=== PATIENT | male | born 1990 | race Hispanic/Latino ===

== ENCOUNTER 2017-06-07 12:36 | Emergency (ER) | payer SELFPAY ==
[~2017-06-07] VITALS: Ht 165.1 cm; Wt 60.0 kg
[2017-06-07 13:08] LABS: URINE BILIRUBIN - DIPSTICK NEGATIVE (NEGATIVE); URINE BLOOD DIPSTICK LARGE (NEGATIVE); URINE COLOR YELLOW; URINE GLUCOSE - DIPSTICK NEGATIVE (NEGATIVE); URINE KETONE NEGATIVE (NEGATIVE); URINE LEUK ESTERASE NEGATIVE (NEGATIVE); URINE NITRITE - DIPSTICK NEGATIVE (Negative); URINE PH 5.5 (4.5-8.0); URINE PROTEIN - DIPSTICK 100 mg/dL (NEG-TRACE); URINE SPECIFIC GRAVITY >=1.030; URINE UROBILINOGEN - DIPSTICK 0.2 E.U./dL (0.2)
[2017-06-07 13:13] LABS: URINE CLARITY HAZY
[2017-06-07 13:16] LABS: HEMATOCRIT 27.2 % (39.0-50.0); HEMOGLOBIN 9.4 g/dl (14.0-18.0); IMMATURE GRANULOCYTES 0.4 % (0.0-1.0); MEAN CELL VOLUME 83.7 fL CALC (80.0-100.0); MEAN CORPUSCULAR HGB 28.9 pG CALC (26.0-32.0); MEAN CORPUSCULAR HGB CONC 34.6 g/L CALC (32.0-36.0); NEUT# 4.35 thou/uL (1.82-7.42); RED BLOOD COUNT 3.25 mill/uL (4.70-6.10); RED CELL DISTRI WIDTH 13.8 % (11.5-15.5)
[2017-06-07 13:27] LABS: URINE AMORPH SEDIMENT FEW hpf (NONE-FER); URINE FINE GRAN CAST FEW lpf; URINE MUCUS FEW hpf (NONE-FEW); URINE SQUAMOUS EPITHELIAL CELL FEW EPI/hpf (0-FEW); URINE WBC 0-2 WBC/hpf (0-5)
[2017-06-07 13:34] LABS: ALKALINE PHOSPHATASE 84 u/l (38-126); AMYLASE 75 u/l (30-110); ANION GAP 18 (6-22 (CALC)); BILIRUBIN, TOTAL 0.8 mg/dL (0.0-1.4); BUN 40 mg/dL (9-20); BUN/CREATININE RATIO 35 (12-20 (CALC)); CALCIUM 8.8 mg/dL (8.4-10.2); CARBON DIOXIDE 23 mmol/l (22-30); CHLORIDE 97 mmol/l (95-108); CREATININE 1.1 mg/dL (0.7-1.3); GFR > 60 ML/MIN (>=60 (CALC)); GFR FOR AFR.AMER. > 60 ML/MIN (>=60 (CALC)); GLUCOSE 113 mg/dL (75-110); LIPASE 94 u/l (23-300); POTASSIUM 3.5 mmol/l (3.5-5.1); SGOT/AST 72 u/l (17-59); SGPT/ALT 44 u/l (21-72); SODIUM 134 mmol/l (137-146)
[2017-06-07] MEDS ORDERED: NEXIUM40 M1 PO (14:57)
[2017-06-07] MEDS ORDERED: ZOFRAN ODT4 MG PO (14:57)
[2017-06-07 15:22] VITALS: BP 112/62
== END 2017-06-07 15:37 | disposition home or self-care (01) | DRG 392 ==
LOC: ED 12:36 → EDBD 13:06 → ED 15:37
PROVIDERS: Emergency Medicine
DX: R10.9 Unspecified abdominal pain (principal); R50.9 Fever, unspecified; R11.2 Nausea with vomiting, unspecified; R19.7 Diarrhea, unspecified; R00.0 Tachycardia, unspecified
CPT/HCPCS: S0164

== ENCOUNTER 2017-06-17 17:27 | Inpatient (IN) | payer SELFPAY ==
[~2017-06-17] VITALS: Ht 165.1 cm; Wt 47.0 kg
[~2017-06-17 17:27] MED LIST: NEXIUM40 M1 PO; ZOFRAN ODT4 MG PO
--- NOTE | 2017-06-17 17:47 | NUR ---
PT TO ROOM FO RTREATMENT IN STABLE CONDIITON
--- NOTE | 2017-06-17 19:25 | NUR ---
IV ABT. GIVEN PER MD ORDER.
--- NOTE | 2017-06-17 19:25 | NUR ---
IV PAIN MED, IVF, IV PROTONIX AND IV ANTIEMETIC GIVEN PER MD ORDERED.
[2017-06-17 19:33] LABS: HEMATOCRIT 27.4 % (39.0-50.0); HEMOGLOBIN 9.3 g/dl (14.0-18.0); IMMATURE GRANULOCYTES 0.5 % (0.0-1.0); MEAN CELL VOLUME 84.3 fL CALC (80.0-100.0); MEAN CORPUSCULAR HGB 28.6 pG CALC (26.0-32.0); MEAN CORPUSCULAR HGB CONC 33.9 g/L CALC (32.0-36.0); NEUT# 3.26 thou/uL (1.82-7.42); RED BLOOD COUNT 3.25 mill/uL (4.70-6.10); RED CELL DISTRI WIDTH 13.7 % (11.5-15.5)
[2017-06-17 19:46] LABS: ALBUMIN 3.3 g/dL (3.2-5.0); ALKALINE PHOSPHATASE 109 u/l (38-126); AMYLASE 327 u/l (30-110); ANION GAP 12 (6-22 (CALC)); BILIRUBIN, TOTAL 0.7 mg/dL (0.0-1.4); BUN 19 mg/dL (9-20); BUN/CREATININE RATIO 25 (12-20 (CALC)); CALCIUM 8.5 mg/dL (8.4-10.2); CARBON DIOXIDE 26 mmol/l (22-30); CHLORIDE 98 mmol/l (95-108); CREATININE 0.8 mg/dL (0.7-1.3); GFR > 60 ML/MIN (>=60 (CALC)); GFR FOR AFR.AMER. > 60 ML/MIN (>=60 (CALC)); GLUCOSE 88 mg/dL (75-110); LIPASE 1406 u/l (23-300); POTASSIUM 4.9 mmol/l (3.5-5.1); SGOT/AST 108 u/l (17-59); SGPT/ALT 47 u/l (21-72); SODIUM 131 mmol/l (137-146); TOTAL PROTEIN 8.5 g/dL (6.3-8.2)
[2017-06-17] MEDS ORDERED: EQ OMEPRAZOLE20 MG PO (19:46)
[2017-06-17] MEDS ORDERED: NAUZENE PO (19:47)
--- NOTE | 2017-06-17 20:11 | NUR ---
PT. STATES HIS ABD. PAIN IS COMPLETLY RESOLVED OF THIS TIME.
[2017-06-17 20:26] LABS: URINE BILIRUBIN - DIPSTICK NEGATIVE (NEGATIVE); URINE BLOOD DIPSTICK SMALL (NEGATIVE); URINE CLARITY SLIGHT CLOUDY; URINE COLOR YELLOW; URINE GLUCOSE - DIPSTICK NEGATIVE (NEGATIVE); URINE KETONE NEGATIVE (NEGATIVE); URINE LEUK ESTERASE NEGATIVE (NEGATIVE); URINE NITRITE - DIPSTICK NEGATIVE (Negative); URINE PROTEIN - DIPSTICK 100 mg/dL (NEG-TRACE)
--- NOTE | 2017-06-17 20:30 | NUR ---
PT. DRINKING PO CONTRAST FOR CT-SCAN, NO C/O NAUSEA OR VOMITING OFFERED.
[2017-06-17 20:45] LABS: URINE BACTERIA FEW hpf; URINE COARSE GRANULAR CAST MODERATE lpf; URINE FINE GRAN CAST FEW lpf; URINE SQUAMOUS EPITHELIAL CELL FEW EPI/hpf (0-FEW)
--- NOTE | 2017-06-17 21:30 | NUR ---
RESTING ON STRETCHER, NO C/O ABD. PAIN OR DISCOMFORT OFFERED, NO S/S OF NAUSEA OR VOMITING OFFERED.
--- NOTE | 2017-06-17 22:30 | NUR ---
AMBULATING TO BR GAIT SLOW AND STEADY, NO C/O ABD. PAIN OR DISCOMFORT OFFERED.
--- NOTE | 2017-06-17 23:30 | NUR ---
FAMILY AT SIDE NO C/O. V/S STABLE.
--- NOTE | 2017-06-18 00:30 | NUR ---
PT. STATES HE HAS NO C/O ABD. PAIN OFFERED.
--- NOTE | 2017-06-18 01:08 | NUR ---
MD IN ROOM TO DISCUSS CLINICAL FINDINGS.
--- NOTE | 2017-06-18 02:08 | NUR ---
abd. soft with +/o pain or discomfort offered.
--- NOTE | 2017-06-18 02:36 | NUR ---
iv levaquin given as per md order.
--- NOTE | 2017-06-18 03:26 | NUR ---
PT. RESTING ON STRETCHER, TAKING SIPS OF H20. NO C/O.
--- NOTE | 2017-06-18 04:25 | NUR ---
PT. TEMP. 101.0 MD AWARE.
--- NOTE | 2017-06-18 04:29 | NUR ---
PO MOTRIN GIVEN PER MD ORDER.
--- NOTE | 2017-06-18 04:46 | NUR ---
Admission Note Report Given to: lucia burns Transported by: Wheelchair x Stretcher Transported with: x Nurse Transporter x Patent IV O2 Construction Services Technician
--- NOTE | 2017-06-18 04:56 | NUR ---
PT. TO [facility] VIA STRETCHER.
--- NOTE | 2017-06-18 05:05 | NUR ---
PT. ARRIVED TO THE FLOOR VIA STRETCHER ACCOMPANIED BY ER STAFF. PT. DENIES NEEDS/PAIN AT THIS TIME. ADMISSION ASSESSEMENT COMPLETED. JUSTIN LAZARO IN AT BEDSIDE FOR ENRICHMENT SPECIALIST. UPDATED PT. ON POC, CALL LIGHT, AND ROOM; VERBALIZES UNDERSTANDING. WILL CALL MD FOR FURTHER ORDERS SHORTLY.
[2017-06-18 05:45] VITALS: BP 91/52
--- NOTE | 2017-06-18 06:06 | NUR ---
DR. MOTT NOTIFIED OF PT'S VS; HR 130'S, B/P 91/52, AND TEMP OF 102.6. ALSO NOTIFIED OF PT. REPORTING HAVING DIARRHEA FOR 8 DAYS. NEW ORDERS RECEIVED AND TO BE CARRIED OUT. MD AWARE OF NEEDING TO WAIT UNTIL PHARMACY ARRIVES FOR PPD INJECTION.
--- NOTE | 2017-06-18 06:35 | NUR ---
PT. MEDICATED WITH ORDERED TYLENOL AND BOLUS OF NS STARTED PER ORDER.
[2017-06-18 07:49] VITALS: BP 105/58
[2017-06-18 08:44] LABS: C. DIFFICILE TOXIN A&B NEGATIVE (NEGATIVE)
--- NOTE | 2017-06-18 08:45 | NUR ---
PT RESTING WITH EYES CLOSED; NO S/SX OF DISTRESS NOTED; IV INFUSING WITHOUT DIFFICULTY; CALL STRONG WITHIN REACH; WILL CONTINUE TO MONITOR.
[2017-06-18 09:16] LABS: HEMATOCRIT 21.5 % (39.0-50.0); HEMOGLOBIN 7.2 g/dl (14.0-18.0); IMMATURE GRANULOCYTES 0.6 % (0.0-1.0); MEAN CELL VOLUME 85.7 fL CALC (80.0-100.0); MEAN CORPUSCULAR HGB 28.7 pG CALC (26.0-32.0); MEAN CORPUSCULAR HGB CONC 33.5 g/L CALC (32.0-36.0); NEUT# 3.36 thou/uL (1.82-7.42); RED BLOOD COUNT 2.51 mill/uL (4.70-6.10); RED CELL DISTRI WIDTH 14.1 % (11.5-15.5)
[2017-06-18 09:36] LABS: ALBUMIN 2.2 g/dL (3.2-5.0); ALKALINE PHOSPHATASE 74 u/l (38-126); ANION GAP 11 (6-22 (CALC)); BILIRUBIN, TOTAL 0.5 mg/dL (0.0-1.4); BUN 15 mg/dL (9-20); BUN/CREATININE RATIO 22 (12-20 (CALC)); CALCIUM 6.9 mg/dL (8.4-10.2); CARBON DIOXIDE 22 mmol/l (22-30); CREATININE 0.7 mg/dL (0.7-1.3); GFR > 60 ML/MIN (>=60 (CALC)); GFR FOR AFR.AMER. > 60 ML/MIN (>=60 (CALC)); GLUCOSE 85 mg/dL (75-110); POTASSIUM 3.5 mmol/l (3.5-5.1); SGOT/AST 72 u/l (17-59); SGPT/ALT 39 u/l (21-72); SODIUM 137 mmol/l (137-146); TOTAL PROTEIN 6.2 g/dL (6.3-8.2)
[2017-06-18 10:07] LABS: CHLORIDE 108 mmol/l (95-108)
--- NOTE | 2017-06-18 10:38 | NUR ---
Vancomycin Consult Age: 26 years Weight: 47 kg Height: 165.1 cm Gender: Male SCR: 0.7 mg/dl Dosing weight: 47 kg IBW: 61.50 kg CRCL (ml/min): 106.3 Fei (hr-1): 0.093 Half-life (hrs): 7.45 Vd (liters): 32.90 (factor: 0.7 L/kg) Vancomycin 1000 mg Q12H to produce a predicted peak of 43 mcg/ml and a predicted trough of 16 mcg/ml based on (Population-based pharmacokinetic analysis).
[2017-06-18 11:15] VITALS: BP 95/55
--- NOTE | 2017-06-18 14:00 | NUR ---
DR. MATA IN TO SEE PT; PLAN OF CARE DISCUSSED
[2017-06-18 16:00] VITALS: BP 108/65
--- NOTE | 2017-06-18 16:50 | NUR ---
FAMILY IN TO SEE PT; NO COMPLAINTS VOICED; CALL STRONG WITHIN REACH; WILL CONTINUE TO MONITOR.
--- NOTE | 2017-06-18 18:59 | NUR ---
DR. MOTT NOTIFIED OF TELE MONITORING 140-160s SUSTAINING AND TEMP 95.6; ORDERS RECEIVED TO GIVE WARM NS BOLUS; HOUSE SUP NOTIFIED; CALL STRONG WITHIN REACH; WILL CONTINUE TO MONITOR.
[2017-06-18 19:39] VITALS: BP 137/64
[2017-06-18 20:29] VITALS: BP 103/46
--- NOTE | 2017-06-18 20:30 | NUR ---
BEDSIDE REPORT RECEIVED FROM DARRYN ALFARO @ [id number]. ASSESSMENT COMPLETED AT THIS TIME. TEMEPERATURE INCREASED TO 103.6. BEAR HUGGER REMOVED AND BLANKETS TAKEN OFF. WARM FLUIDS CONTINUE AT THIS TIME. FAMILY AT BEDSIDE. WILL CONTINUE TO MONITOR TEMP.
--- NOTE | 2017-06-19 | NUR ---
PT AWAKENS SPONTANEOUSLY; ALERT AND ORIENTED. C/O MILD ABDOMINAL PAIN. RESPIRATIONS EVEN AND UNLABORED. VOIDING CLEAR YELLOW URINE INTO URINAL AT BEDSIDE. IV FLUIDS INFUSING WITHOUT DIFFICULTY; IV SITE APPEARS HEALTHY. TELE IN PLACE. PENILE LESIONS NOTED UNDER [place]; NOT OPEN OR DRAINING. DRY COUGH CONTINUES. SAFETY MEASURES IN PLACE. CALL LIGHT WITHIN REACH.
[2017-06-19 04:27] VITALS: BP 127/76
--- NOTE | 2017-06-19 05:29 | NUR ---
PTS TEMPERATURE DOWN FROM BEGINNING OF SHIFT. PT STATES HE HAD 7 BOWEL MOVEMENTS OF DIARRHEA THROUGHOUT THE SHIFT IN LARGE AMOUNTS. ABT GIVEN WITH NO ADVERSE EFFECTS NOTED. REMAINS ON AIRBORNE PRECAUTIONS UNTIL TB IS RULED OUT. QUESTIONS ARE ANSWERED TO SATISFACTION WITH [place]ET[place]ESE SPEAKING PRICING MANAGER. SAFETY MEASURES IN PLACE. CALL LIGHT WITHIN REACH.
[2017-06-19 06:02] LABS: HEMATOCRIT 24.9 % (39.0-50.0); HEMOGLOBIN 8.2 g/dl (14.0-18.0); IMMATURE GRANULOCYTES 1.1 % (0.0-1.0); MEAN CELL VOLUME 87.1 fL CALC (80.0-100.0); MEAN CORPUSCULAR HGB 28.7 pG CALC (26.0-32.0); MEAN CORPUSCULAR HGB CONC 32.9 g/L CALC (32.0-36.0); NEUT# 2.57 thou/uL (1.82-7.42); RED BLOOD COUNT 2.86 mill/uL (4.70-6.10); RED CELL DISTRI WIDTH 14.4 % (11.5-15.5)
[2017-06-19 06:04] LABS: ANION GAP 12 (6-22 (CALC)); BUN 13 mg/dL (9-20); BUN/CREATININE RATIO 18 (12-20 (CALC)); CALCIUM 7.6 mg/dL (8.4-10.2); CARBON DIOXIDE 21 mmol/l (22-30); CHLORIDE 111 mmol/l (95-108); CREATININE 0.7 mg/dL (0.7-1.3); GFR > 60 ML/MIN (>=60 (CALC)); GFR FOR AFR.AMER. > 60 ML/MIN (>=60 (CALC)); GLUCOSE 77 mg/dL (75-110); MAGNESIUM 1.7 mg/dL (1.6-2.3); POTASSIUM 4.1 mmol/l (3.5-5.1); SODIUM 139 mmol/l (137-146)
--- NOTE | 2017-06-19 06:08 | NUR ---
PT'S HEART RATE TEMPORARILY ELEVATED TO THE 180'S. UPON ASSESSMENT, PT HAD A LARGE EMESIS OF CLEAR THIN LIQUID CONSISTENCY WITH SMALL AMOUNT OF BLOOD. AFTER EMESIS, HR DECREASED TO THE 150'S, WHICH HAS BEEN TYPICAL OF PT. PT STATES THAT HE NO LONGER FEELS NAUSEA, ONLY DISCOMFORT IN MID ABDOMEN. TEMPERATURE AT THIS TIME WAS 101.3. TYLENEL GIVEN WITH OTHER MORNING MEDICATIONS. WILL REASSESS.
[2017-06-19 08:30] VITALS: BP 98/52
[2017-06-19 11:45] VITALS: BP 99/53
[2017-06-19 16:06] VITALS: BP 107/69
--- NOTE | 2017-06-19 16:50 | NUR ---
SPUTUM OBTAINED AND SENT TO LAB
[2017-06-19 19:40] VITALS: BP 111/54
--- NOTE | 2017-06-19 20:27 | NUR ---
PT. SITTING UP ON THE SIDE OF THE BED; NO DISTRESS NOTED. RESP EVEN AND UNLABORED. ASSESSMENT COMPLETED. IV SITE PATENT AND INFUSING ORDERED IVF WELL. UPDATED ON POC. PT. DENIES NEEDS AT THIS TIME; ENCOURAGED TO CALL FOR ANY NEEDS. CALL LIGHT IS IN REACH.
--- NOTE | 2017-06-19 22:06 | NUR ---
PT. RESTING IN BED WITH NO DISTRESS NOTED. SCHED BACTRIM GIVEN. TEMP RECHECKED 96.8, WILL CONTINUE TO MONITOR. PT. REQUESTING PRN RESTORIL, WILL ADMINISTER SHORTLY. ENCOURAGED TO CALL FOR ANY NEEDS. CALL LIGHT IS IN REACH.
--- NOTE | 2017-06-20 00:17 | NUR ---
PT. RESTING IN BED WITH EYES CLOSED, NO DISTRESS NOTED. RESP EVEN AND UNLABORED. SCHEDULED ANTIBIOTIC HUNG. WILL CONTINUE TO MONITOR. CALL LIGHT IS IN REACH.
[2017-06-20 00:32] VITALS: BP 94/52
--- NOTE | 2017-06-20 03:40 | NUR ---
RECEIVED PHONE CALL PER CLINICAL PROGRAMMER THAT PT'S HR IS UP TO 160; CHECKED PT'S TEMP AND ITS UP TO 102.6; PT. IS SHAKING FROM FEVER; DENIES CP. MEDICATED WITH ORDERED TYLENOL; SHEETS REMOVED AND COOL PACKS PLACED TO AUXILLARY AND GROIN AREA; COOL WASH CLOTH APPLIED TO FOREHEAD; WILL REASSESS.
[2017-06-20 03:45] VITALS: BP 121/75
[2017-06-20 05:09] LABS: ANION GAP 11 (6-22 (CALC)); BUN 13 mg/dL (9-20); BUN/CREATININE RATIO 19 (12-20 (CALC)); CALCIUM 7.7 mg/dL (8.4-10.2); CARBON DIOXIDE 19 mmol/l (22-30); CHLORIDE 111 mmol/l (95-108); CREATININE 0.7 mg/dL (0.7-1.3); GFR > 60 ML/MIN (>=60 (CALC)); GFR FOR AFR.AMER. > 60 ML/MIN (>=60 (CALC)); GLUCOSE 83 mg/dL (75-110); MAGNESIUM 1.7 mg/dL (1.6-2.3); POTASSIUM 3.8 mmol/l (3.5-5.1); SODIUM 138 mmol/l (137-146)
[2017-06-20 05:23] LABS: HEMATOCRIT 22.2 % (39.0-50.0); HEMOGLOBIN 7.5 g/dl (14.0-18.0); IMMATURE GRANULOCYTES 1.1 % (0.0-1.0); MEAN CELL VOLUME 83.5 fL CALC (80.0-100.0); MEAN CORPUSCULAR HGB 28.2 pG CALC (26.0-32.0); MEAN CORPUSCULAR HGB CONC 33.8 g/L CALC (32.0-36.0); RED BLOOD COUNT 2.66 mill/uL (4.70-6.10); RED CELL DISTRI WIDTH 14.4 % (11.5-15.5)
--- NOTE | 2017-06-20 05:43 | NUR ---
PT. RESTING IN BED WITH NO DISTRESS NOTED. TEMP REASSESSED AND IS 100, WILL CONTINUE TO MONITOR; SCHED MEDS GIVEN. JUICE PROVIDED.PT DENIES NEEDS. ENCOURAGED TO CALL FOR ANY NEEDS. CALL LIGHT IS IN REACH.
[2017-06-20 07:05] LABS: BAND 6 % (0-8); HYPOCHROMIA FEW; MANUAL DIFFERENTIAL YES; MICROCYTOSIS MODERATE; PLATELET COUNT 112 thou/uL (130-400); POIKILOCYTOSIS MODERATE
[2017-06-20 07:06] LABS: ACANTHOCYTES FEW; OVALOCYTES MODERATE; SCHISTOCYTES FEW; SPHEROCYTE FEW
--- NOTE | 2017-06-20 07:20 | NUR ---
PT.IN BED SLEEPING, CALL LIGHT W/IN REACH
[2017-06-20 09:35] VITALS: BP 104/67
--- NOTE | 2017-06-20 10:05 | NUR ---
PT.MEDICATED W/AM MEDICATIONS ANTIBIOTIC IV THERAPY ORDERS PROVIDE, HEART RATE @117 STEADY, PT.AMBULATED TO RESTROOM AND HAD A SPELL OF COUGHING WHILE STANDING IN THE RESTROOM, HR ELEVATED TO 130'S. WILL RECHECK WITH TELEMETRY READINGS UPON PT.RESTING BACK IN BED. PT. REPORTS IV IS HURTING, MAY BE STARTING TO INFILTRATE, WILL ACCESS NEW IV SITE.
--- NOTE | 2017-06-20 11:00 | NUR ---
PPD READING 0 MM
[2017-06-20 12:00] VITALS: BP 117/55
--- NOTE | 2017-06-20 13:42 | NUR ---
NEW IV SITE ACCESSED BY DARRYN DOHERTY, ANTIBIOTIC THERAPY IS BEING ADMINISTERED AT THIS TIME, PT.MEDICATED WITH TORODOL FOR FEVER OF 101.6 PER FELIX,TRAILER TANK TRUCK DRIVER. WILL REASSESS TEMPERATURE
[2017-06-20 15:44] VITALS: BP 102/54
--- NOTE | 2017-06-20 15:45 | NUR ---
PT.UPRIGHT IN BED, DENIES ANY NEEDS AT THIS TIME, PT.MEDICATED WITH SEPTRA AND ANTIBIOTIC IV THERAPY. TEMP RECHECK AT 99.4 ORAL
--- NOTE | 2017-06-20 16:07 | NUR ---
S: DEVON ALFARO is a 26 M who presents with abdominal pain. All medications in patient's chart were reviewed. O: VS: BP 115/55, P 138, RR 28,T 103.8F W 47 kg, HT 165.1 cm, Scr= 0.7,CrCl= 106.3 ml/min A: clinical impression of acute abdominal pain, pancreatitis, and atypical pneumonia r/o TB. Preliminary blood culture shows no growth after 48 hours. P: Vancomycin ordered for pharmacy to dose. Patient currently receiving Vancomycin 1 gram IV Q12H @ 1100,2300. Vancomycin trough on 06/19/17 @2230 = 7 Increase dose to vancomycin 1g IV q8h @ 0700,1500,2300 Next trough to be drawn on 06/21/17 @ 1430. Goal trough 15-20 mcg/ml Pharmacy will follow and or advise on antibiotics use as needed.
--- NOTE | 2017-06-20 17:28 | NUR ---
PT.MEDICATED W/DIFLUCAN, PT.SLEEPING IN BED, RESPONDED AND WENT RIGHT BACK TO SLEEP; PT.LEFT SLEEPING, WITH CALL LIGHT W/IN REACH
[2017-06-20 19:30] VITALS: BP 107/67
--- NOTE | 2017-06-20 20:00 | NUR ---
REPORT RECEIVED FROM STEVE BANKS RN. ASSUMED PT CARE AT THIS TIME. INTRODUCED SELF TO PT. FOUND PT ALERT AND ORIENTED X3, DENIES PAIN, C/O NAUSEA WILL MEDICATE PER . ORDERS. WILL CONTINUE TO MONITOR.
--- NOTE | 2017-06-20 20:39 | NUR ---
REPORT CALLED TO [facility] [phone] TO NITIN FRANCO RN. AT THIS TIME.
--- NOTE | 2017-06-20 21:53 | NUR ---
[facility] LEAVING AT THIS TIME WITH PT, PT ABLE TO AMBULATE FROM BED TO STRETCHER, LEFT WITH #20 LAC LR AT 150 ML/HR, MEDICATED WITH ZOFRAN FOR COMPLAINTS OF NAUSEA AND SEPTRA BY MOUTH, PT ALERT AND ORIENTED X3, PLEASANT AND TALKACTIVE, THIS HITTING COACH TRANSLATED FOR HIM, ALL BELONGINGS WERE PLACED IN A BAG AND SENT WITH HIM. CELL PHONE IN PT'S HAND AND SHRIMPING BOAT CAPTAIN IN BAG. NO DISTRESS NOTED AT DEPARTURE, ORAL TEMP 97.3.
== END 2017-06-20 21:55 | disposition short-term general hospital (02) | DRG 974 ==
LOC: ED 17:27 → ED-I 06-18 00:40 → ED 06-18 04:02 → MS2 06-18 04:03
PROVIDERS: Emergency Medicine; Internal Medicine; Nurse Practitioner Family; ADMIT Internal Medicine; ATTEND Internal Medicine
DX: B20 Human immunodeficiency virus [HIV] disease (principal); B59 Pneumocystosis; K85.80 Other acute pancreatitis without necrosis or infection; E86.0 Dehydration; Z87.891 Personal history of nicotine dependence
CPT/HCPCS: Q9967; S0164